=== PATIENT | male | born 1970 | race Caucasian/White ===

== ENCOUNTER 2021-02-10 22:02 | Emergency (ER) | payer OTHER ==
[~2021-02-10 22:02] MED LIST: ASPIR-LOW81 MG PO; ASPIRIN325 MG PO; ATORVASTATIN CA20 MG PO; BRILINTA 90 MG90 MG PO; HABITROL 21 MG P1 EA TD; HYDROCHLOROTHIA25 MG PO; HYDROCODON-ACE1 EAC6 PO; IMDUR ER TAB 6060 MG PO; LISINOPRIL10 MG PO; LOPRESSOR 25 MG25 MG PO; METOPROLOL TART25 MG PO; NEURONTIN600 MG PO; PANTOPRAZOLE SO40 MG PO
[2021-02-10 22:54] LABS: HEMOGLOBIN 16.5 gm/dl (14.0-17.5); RED BLOOD COUNT 5.41 M/UL (4.20-5.50); WHITE BLOOD COUNT 9.2 K/UL (4.5-11.0)
[2021-02-10 23:17] LABS: BUN/CREATININE RATIO 17 (0-10)
== END 2021-02-10 23:14 | disposition left against medical advice (07) ==
LOC: ER1 22:02
PROVIDERS: Physician Assistant
DX: I10 Essential (primary) hypertension (principal); F17.200 Nicotine dependence, unspecified, uncomplicated; Z88.1 Allergy status to other antibiotic agents
CPT/HCPCS: 71045; 80053; 82550; 82553; 83874; 84484; 85025; 93005; 99284

== ENCOUNTER 2021-05-30 19:21 | Inpatient (IN) | payer OTHER ==
[~2021-05-30] VITALS: Ht 188 cm; Wt 103.0 kg
[~2021-05-30 19:21] MED LIST changes: +GABAPENTIN800 MG PO; -NEURONTIN600 MG PO
[2021-05-30 19:47] LABS: HEMOGLOBIN 16.4 gm/dl (14.0-17.5); RED BLOOD COUNT 5.34 M/UL (4.20-5.50); WHITE BLOOD COUNT 9.6 K/UL (4.5-11.0)
[2021-05-30 20:22] LABS: BUN/CREATININE RATIO 19 (0-10)
[2021-05-31 03:38] LABS: HEMOGLOBIN 14.8 gm/dl (14.0-17.5); RED BLOOD COUNT 4.96 M/UL (4.20-5.50); WHITE BLOOD COUNT 8.5 K/UL (4.5-11.0)
[2021-05-31 04:05] LABS: BUN/CREATININE RATIO 22 (0-10)
[2021-05-31] MEDS ORDERED: AMLODIPINE BESY10 MG PO (08:19)
[2021-05-31] MEDS ORDERED: CATAPRES 0.1MG0.1 MG PO (08:24)
[2021-05-31] MEDS ORDERED: METOPROLOL SUCC50 MG PO (08:24)
[2021-05-31] MEDS ORDERED: QUETIAPINE FUMA25 MG PO (08:26)
[2021-05-31] MEDS ORDERED: PROAIR HFA8.5 GM INH (08:28)
[2021-05-31] MEDS ORDERED: GABAPENTIN300 MG PO (15:31)
[2021-05-31] MEDS ORDERED: ASPIRIN 325MG325 MG PO (15:31)
[2021-05-31] MEDS ORDERED: LOPRESSOR 25 MG25 MG PO (15:34)
== END 2021-05-31 19:38 | disposition short-term general hospital (02) | DRG 281 ==
LOC: ER1 19:21 → CDU 21:49 → PROG CARE 21:49
PROVIDERS: Emergency Medicine; ADMIT Internal Medicine
PROC: 4A023N7 Measurement of Cardiac Sampling and Pressure, Left Heart, Percutaneous Approach (ICD-10-PCS; principal; 2021-05-31)
PROC: B24BZZZ Ultrasonography of Heart with Aorta (ICD-10-PCS; 2021-05-31)
PROC: B2151ZZ Fluoroscopy of Left Heart using Low Osmolar Contrast (ICD-10-PCS; 2021-05-31)
PROC: B2111ZZ Fluoroscopy of Multiple Coronary Arteries using Low Osmolar Contrast (ICD-10-PCS; 2021-05-31)
DX: I21.4 Non-ST elevation (NSTEMI) myocardial infarction (principal); R45.851 Suicidal ideations; I25.5 Ischemic cardiomyopathy; Z20.822 Contact with and (suspected) exposure to COVID-19; I10 Essential (primary) hypertension; F32.9 Major depressive disorder, single episode, unspecified; E78.5 Hyperlipidemia, unspecified; J44.9 Chronic obstructive pulmonary disease, unspecified; I25.110 Atherosclerotic heart disease of native coronary artery with unstable angina pectoris; F17.210 Nicotine dependence, cigarettes, uncomplicated; G89.29 Other chronic pain; I45.10 Unspecified right bundle-branch block; Z95.5 Presence of coronary angioplasty implant and graft; Z79.01 Long term (current) use of anticoagulants; Z79.82 Long term (current) use of aspirin; Z82.49 Family history of ischemic heart disease and other diseases of the circulatory system; I25.2 Old myocardial infarction
CPT/HCPCS: ECHO; 36415; 71045; 80048; 80053; 82550; 82553; 83874; 84484; 85025; 85610; 85730; 93005; 93306; 96374; 99152; 99153; 99285; C1769; C1887; C1894; G0480; J1644; J2250; J2270; J3010; J7030; J7040; Q9967; U0002

== ENCOUNTER → 2021-06-22 | Outpatient (CLI) | payer OTHER ==
[~2021-06-22] MED LIST changes: +AMLODIPINE BESY10 MG PO; +ASPIRIN 325MG325 MG PO; +CATAPRES 0.1MG0.1 MG PO; +GABAPENTIN300 MG PO; +METOPROLOL SUCC50 MG PO; +PROAIR HFA8.5 GM INH; +QUETIAPINE FUMA25 MG PO
== END ==
LOC: RAD 15:04
DX: Z00.00 Encounter for general adult medical examination without abnormal findings (principal); R91.8 Other nonspecific abnormal finding of lung field
CPT/HCPCS: 71046